=== PATIENT | male | born 1960 | race Caucasian/White ===

== ENCOUNTER 2020-01-29 01:14 | Inpatient (IN) | payer MEDICAID ==
[~2020-01-29] VITALS: Ht 175.3 cm; Wt 83.0 kg
[2020-01-29] MEDS ORDERED: LIDOcaine 2% 10ml TOPICAL JELLY (Urojet) TP ONE (01:50)
[2020-01-29 02:48] LABS: BASOPHILS # (AUTO) 0.1 X10'3 (0-0.2); BASOPHILS % (AUTO) 0.9 % (0-1); EOSINOPHILS % (AUTO) 0.3 % (0-6); HEMATOCRIT 26.1 % (42.0-52.0); HEMOGLOBIN 8.7 g/dl (14.0-17.9); LYMPHOCYTES # (AUTO) 1.4 X10'3 (1.1-4.8); LYMPHOCYTES % (AUTO) 11.9 % (21-51); MEAN CORPUSCULAR HEMOGLOBIN 30.4 PG (27.0-31.0); MEAN CORPUSCULAR HGB CONC 33.2 g/dL (33.0-36.5); MEAN CORPUSCULAR VOLUME 91.5 FL (78-98); MEAN PLATELET VOLUME 7.8 FL (7.4-10.4); MONOCYTES # (AUTO) 0.9 X10'3 (0-0.9); MONOCYTES % (AUTO) 8.2 % (2-12); NEUTROPHILS # (AUTO) 8.9 X10'3 (1.8-7.7); NEUTROPHILS % (AUTO) 78.7 % (42-75); PLATELET COUNT 442 X10'3 (140-440); RED BLOOD COUNT 2.86 X10'6 (4.70-6.10); RED CELL DISTRIBUTION WIDTH 15.2 % (11.5-14.5); WHITE BLOOD COUNT 11.4 X10'3 (4.5-11.0)
[2020-01-29 02:49] LABS: CLARITY,URINE SLIGHTLY CLOUDY (Clear); COLOR,URINE YELLOW (Yellow); GLUCOSE, URINE NEGATIVE (Neg); KETONES,URINE NEGATIVE (Neg); LEUKOCYTE ESTERASE ,URINE NEGATIVE (Neg); NITRITES, URINE NEGATIVE (Neg); OCCULT BLOOD,URINE LARGE (Neg); PH,URINE 5.5 (4.8-8.0); PROTEIN,URINE TRACE mg/dl (Neg); UROBILINOGEN,URINE 0.2 E.U/dL (0.2-1.0)
[2020-01-29] MEDS ORDERED: acetaminophen 325mg tablet PO ONE (02:50)
[2020-01-29 02:56] LABS: UA COLLECTION TYPE FOLEY CATH
[2020-01-29 02:58] LABS: BACTERIA,URINE 1+ /HPF (Neg); SQUAMOUS EPITHELIAL CELL,UR FEW /LPF (FEW)
[2020-01-29 03:04] LABS: ALANINE AMINOTRANSFERASE 12 U/L (12-78); ALBUMIN 3.6 G/DL (3.4-5.0); ALBUMIN/GLOBULIN RATIO 0.9 (1.1-1.5); ALKALINE PHOSPHATASE 77 IU/L (46-116); ANION GAP 23 (8-16); ASPARTATE AMINO TRANSFERASE 11 U/L (10-37); BILIRUBIN,TOTAL 0.3 MG/DL (0.1-1.0); BUN/CREATININE RATIO 4.4 (5.4-32.0); CALCIUM 8.8 MG/DL (8.5-10.1); CHLORIDE 99 MMOL/L (99-107); GLUCOSE 75 MG/DL (70-104); LIPASE 82 U/L (73-393); POTASSIUM 4.1 MMOL/L (3.5-5.1); SODIUM 137 MMOL/L (135-145); TOTAL CARBON DIOXIDE 15.1 MMOL/L (24-32); TOTAL PROTEIN 7.8 G/DL (6.4-8.2); eGFR 4 ML/MIN
[2020-01-29 03:16] LABS: BLOOD UREA NITROGEN 55 MG/DL (7-18)
[2020-01-29] MEDS ORDERED: CefTRIAXone/D5W-Rocephin 1gm 50 ML IV ONE (03:20)
[2020-01-29] MEDS ORDERED: normal saline 1000ML IV soln IVB ONE (03:20)
[2020-01-29] MEDS ORDERED: NO HOME MEDS (03:51)
[2020-01-29] MEDS ORDERED: magnesium hydroxide 30ml (MOM) UD suspension PO PRN (04:30)
[2020-01-29] MEDS ORDERED: amLODIPine 5mg tablet PO ONE (04:30)
[2020-01-29] MEDS ORDERED: mag hydrox/Alum hydrox/simeth 30ml oral suspension PO PRN (04:30)
[2020-01-29] MEDS ORDERED: acetaminophen 325mg tablet PO PRN (04:30)
[2020-01-29] MEDS ORDERED: ondansetron/PF 4mg/2ml inj IV PRN (04:30)
[2020-01-29] MEDS: normal saline 1000ml 1,000 ML IV SCH ×3 (04:52→16:58)
[2020-01-29 05:44] VITALS: BP 186/93
--- NOTE | 2020-01-29 05:46 | NUR ---
pt just admitted from ER. BP is 186/93. Norvasc was given in ER before pt came to the floor Addendum: 01/29/20 at 0548 by Susan Woodson RN Amended: Links added.
--- NOTE | 2020-01-29 05:48 | NUR ---
Patient in room [facility]. I have received report from Angie HILTON and had the opportunity to ask questions and assume patient care.
--- NOTE | 2020-01-29 06:40 | NUR ---
Patient in room [facility]. I have received report from Susan HILTON and had the opportunity to ask questions and assume patient care.
--- NOTE | 2020-01-29 06:45 | NUR ---
Problems reprioritized. Patient report given, questions answered & plan of care reviewed with Hayde HILTON.
[2020-01-29 07:00] VITALS: BP 172/81
[2020-01-29] MEDS: morphine 2 MG/ML inj. syringe IV PRN ×2 (07:16→23:15)
[2020-01-29] MEDS: CefTRIAXone/D5W-Rocephin 1gm 50 ML IV SCH ×2 (07:16→07:18)
[2020-01-29 09:59] LABS: BASOPHILS # (AUTO) 0.1 X10'3 (0-0.2); EOSINOPHILS # (AUTO) 0.3 X10'3 (0-0.9); EOSINOPHILS % (AUTO) 2.4 % (0-6); HEMATOCRIT 26.9 % (42.0-52.0); HEMOGLOBIN 8.9 g/dl (14.0-17.9); LYMPHOCYTES # (AUTO) 2.1 X10'3 (1.1-4.8); LYMPHOCYTES % (AUTO) 19.7 % (21-51); MEAN CORPUSCULAR HEMOGLOBIN 30.3 PG (27.0-31.0); MEAN CORPUSCULAR HGB CONC 33.2 g/dL (33.0-36.5); MEAN CORPUSCULAR VOLUME 91.2 FL (78-98); MEAN PLATELET VOLUME 8.6 FL (7.4-10.4); MONOCYTES % (AUTO) 9.8 % (2-12); NEUTROPHILS # (AUTO) 7.1 X10'3 (1.8-7.7); NEUTROPHILS % (AUTO) 67.1 % (42-75); PLATELET COUNT 434 X10'3 (140-440); RED BLOOD COUNT 2.95 X10'6 (4.70-6.10); RED CELL DISTRIBUTION WIDTH 15.2 % (11.5-14.5); WHITE BLOOD COUNT 10.6 X10'3 (4.5-11.0)
[2020-01-29 10:06] LABS: ALBUMIN 3.3 G/DL (3.4-5.0); ANION GAP 19 (8-16); BLOOD UREA NITROGEN 51 MG/DL (7-18); BUN/CREATININE RATIO 5.4 (5.4-32.0); CHLORIDE 106 MMOL/L (99-107); CREATININE 9.37 MG/DL (0.60-1.10); GLUCOSE 64 MG/DL (70-104); SODIUM 141 MMOL/L (135-145); TOTAL CARBON DIOXIDE 15.8 MMOL/L (24-32); eGFR 6 ML/MIN
[2020-01-29 11:00] VITALS: BP 144/77
--- NOTE | 2020-01-29 12:19 | NUR ---
PAGER ID: [phone] MESSAGE: Linda_Surg [phone] Re: [facility] patient would like to eat? Can we order a diet ?
--- NOTE | 2020-01-29 13:54 | NUR ---
Malnutrition consult: Pt unsure of wt loss however reports decreased appetite per malnutrition risk screen with RN. Pt with scaled wt hx of 84.1 kg taken August 2015, current scaled weight is 83 kg (114% IBW). Patient previously NPO, requesting to eat per RN notes. Diet has been advanced to clear liquids, pending first meal since advancement. Pt with no documented significant decrease in muscle strength or edema. Pt currently lacks a minimum of two criteria for malnutrition. Will continue to follow. Addendum: 01/29/20 at [address] Amended: Links added.
--- NOTE | 2020-01-29 18:39 | NUR ---
Problems reprioritized. Patient report given, questions answered & plan of care reviewed with Elías HILTON.
[2020-01-29 19:00] VITALS: BP 163/86
[2020-01-29] MEDS: lactobacillus rhamnosus 10,000 MMU CELLS/CAPSULE PO SCH (19:15)
[2020-01-30] VITALS (16 sets, daily range): BP systolic 120–177; BP diastolic 67–102
[2020-01-30] MEDS: normal saline 1000ml 1,000 ML IV SCH ×4 (01:50→22:15)
[2020-01-30 04:11] LABS: BASOPHILS # (AUTO) 0.1 X10'3 (0-0.2); BASOPHILS % (AUTO) 0.8 % (0-1); EOSINOPHILS # (AUTO) 0.2 X10'3 (0-0.9); EOSINOPHILS % (AUTO) 2.2 % (0-6); HEMATOCRIT 27.2 % (42.0-52.0); HEMOGLOBIN 9.1 g/dl (14.0-17.9); LYMPHOCYTES # (AUTO) 2.1 X10'3 (1.1-4.8); LYMPHOCYTES % (AUTO) 19.4 % (21-51); MEAN CORPUSCULAR HGB CONC 33.4 g/dL (33.0-36.5); MEAN CORPUSCULAR VOLUME 89.9 FL (78-98); MEAN PLATELET VOLUME 7.9 FL (7.4-10.4); MONOCYTES # (AUTO) 0.9 X10'3 (0-0.9); MONOCYTES % (AUTO) 8.6 % (2-12); NEUTROPHILS # (AUTO) 7.5 X10'3 (1.8-7.7); PLATELET COUNT 449 X10'3 (140-440); RED BLOOD COUNT 3.03 X10'6 (4.70-6.10); RED CELL DISTRIBUTION WIDTH 15.3 % (11.5-14.5); WHITE BLOOD COUNT 10.9 X10'3 (4.5-11.0)
[2020-01-30 04:26] LABS: ALANINE AMINOTRANSFERASE 10 U/L (12-78); ALBUMIN 3.2 G/DL (3.4-5.0); ALBUMIN/GLOBULIN RATIO 0.8 (1.1-1.5); ALKALINE PHOSPHATASE 62 IU/L (46-116); ANION GAP 11 (8-16); ASPARTATE AMINO TRANSFERASE 9 U/L (10-37); BILIRUBIN,TOTAL 0.2 MG/DL (0.1-1.0); BLOOD UREA NITROGEN 31 MG/DL (7-18); BUN/CREATININE RATIO 7.2 (5.4-32.0); CALCIUM 8.3 MG/DL (8.5-10.1); CHLORIDE 111 MMOL/L (99-107); CREATININE 4.33 MG/DL (0.60-1.10); GLUCOSE 89 MG/DL (70-104); POTASSIUM 3.7 MMOL/L (3.5-5.1); SODIUM 145 MMOL/L (135-145); TOTAL CARBON DIOXIDE 22.6 MMOL/L (24-32); TOTAL PROTEIN 7.2 G/DL (6.4-8.2); eGFR 14 ML/MIN
--- NOTE | 2020-01-30 07:20 | NUR ---
Received phone call from chief technician x ray that pt's bladder distended and appeared to be full of urine. Bladder scanned pt's bladder, bladder scan shows 74 mL in bladder-pt reports he repositioned and feels that his bladder is "now draining better." will continue to monitor.
[2020-01-30] MEDS: lactobacillus rhamnosus 10,000 MMU CELLS/CAPSULE PO SCH ×2 (07:33→20:59)
[2020-01-30] MEDS: CefTRIAXone/D5W-Rocephin 1gm 50 ML IV SCH (07:34)
[2020-01-30] MEDS ORDERED: ondansetron/PF 4mg/2ml inj IV PRN (10:10)
[2020-01-30] MEDS ORDERED: morphine 2 MG/ML inj. syringe IV PRN (10:10)
[2020-01-30] MEDS ORDERED: labetalol 20mg/4ml (5mg/ml) syringe IV PRN (10:10)
[2020-01-30] MEDS ORDERED: fentaNYL/PF 50MCG/1 ML 2ML syringe IV PRN ×2 (10:10)
[2020-01-30] MEDS ORDERED: ringers solution, lacted 1,000 ML IV SCH (10:10)
[2020-01-30] MEDS ORDERED: ringers solution, lacted 1,000 ML IV ONE (10:10)
[2020-01-30] MEDS ORDERED: hydrALAZINE 20mg/ml inj. IV PRN (10:10)
[2020-01-30] MEDS ORDERED: morphine 4 MG/ML inj SYRINge IV PRN (10:10)
--- NOTE | 2020-01-30 10:15 | NUR ---
Attempted x2 to start new PIV for patient for OR. failed attempts. OR tech arrived to pick patient up upon second failed attempt. notified LIDA kenney in recovery.
[2020-01-30] MEDS ORDERED: MIDAZolam 5mg/5ml vial ONE ×2 (11:10→11:18)
--- NOTE | 2020-01-30 12:10 | NUR ---
Received from OR via BED, accompanied by Anesthesiologist DR OLIVARES-- and report given by Anesthesiolgist. PATIENT A&OX4, DENIES PAIN, V/S WNL, NEUROVASCULAR CHECKS INTACT, 20G PIV LUE, SCD ON, F/C DRAINING RED URINE HEMATURIA DR GOMEZ AWARE. NO S/S OF ANY OTHER COMPLICATIONS AT VISABLE SURGICAL SITE.
--- NOTE | 2020-01-30 12:40 | NUR ---
PATIENT A&OX4, DENIES PAIN, V/S WNL, NEUROVASCULAR CHECKS INTACT, 20G PIV LUE, SCD ON, F/C DRAINING RED URINE HEMATURIA DR GOMEZ AWARE. NO S/S OF ANY OTHER COMPLICATIONS AT VISABLE SURGICAL SITE. 3WAY IRRIGATION F/C BUT NO ACTIVE IRRIGATION ORDERED FOR F/C YET AT THIS TIME. SENSATIONS AT T11. PATIENT TAKEN TO 345A WITH ALL BELONGINGS AND HOOKED UP TO MONITORS IN ROOM AND REPORT GIVEN TO RN WHO HAS TAKEN OVER PATIENT CARE.
--- NOTE | 2020-01-30 12:44 | NUR ---
RECEIVED REPORT FROM LIDA HUBBARD IN RECOVERY. PATIENT BACK FROM OR, POST OP VITAL SIGNS STARTED. PT REPORTS NO PAIN, STATES "DOESNT FEEL MUCH." FIRST SET VSS. WILL CONTINUE TO MONITOR.
--- NOTE | 2020-01-30 14:27 | NUR ---
Patient has field start for IV access, refusing new IV at this time, pt stating "no more poking please"
[2020-01-30] MEDS: morphine 2 MG/ML inj. syringe IV PRN (16:50)
--- NOTE | 2020-01-30 17:18 | NUR ---
hand irrigated pt's 3 way hernandez X3. got several smaller clots and 400 cc's urine out-bladder scan shows 0 mL in bladder. Morphine given for pt's discomfort.
--- NOTE | 2020-01-30 17:40 | NUR ---
Spoke to Dr. Cochran, let him know that after hand irrigating this most recent time, I was able to get 60 cc's out that I put in the catheter lumen to irrigate, but that it seems to stop flowing through the catheter tubing not long after irrigation. states that he will call back in an hour to check to see if anything has changed, and that he may put in different sized catheter.
[2020-01-30] MEDS ORDERED: opium/belladonna alkaloids No. 15A 30mg rectal suppository RC PRN (18:30)
--- NOTE | 2020-01-30 18:40 | NUR ---
Problems reprioritized. Patient report given, questions answered & plan of care reviewed with LIDA Mckinley.
[2020-01-30] MEDS: HYDROmorphone 1 mg/ml syringe IV PRN (20:56)
[2020-01-31] VITALS: BP 174/86
[2020-01-31] MEDS: normal saline 1000ml 1,000 ML IV SCH ×5 (04:30→23:00)
[2020-01-31 05:24] LABS: ALANINE AMINOTRANSFERASE 10 U/L (12-78); ALBUMIN 2.8 G/DL (3.4-5.0); ALBUMIN/GLOBULIN RATIO 0.8 (1.1-1.5); ALKALINE PHOSPHATASE 53 IU/L (46-116); ANION GAP 7 (8-16); ASPARTATE AMINO TRANSFERASE 10 U/L (10-37); BILIRUBIN,TOTAL 0.3 MG/DL (0.1-1.0); BLOOD UREA NITROGEN 16 MG/DL (7-18); BUN/CREATININE RATIO 7.8 (5.4-32.0); CALCIUM 7.3 MG/DL (8.5-10.1); CHLORIDE 109 MMOL/L (99-107); CREATININE 2.04 MG/DL (0.60-1.10); GLUCOSE 98 MG/DL (70-104); POTASSIUM 3.3 MMOL/L (3.5-5.1); SODIUM 140 MMOL/L (135-145); TOTAL CARBON DIOXIDE 24.4 MMOL/L (24-32); TOTAL PROTEIN 6.3 G/DL (6.4-8.2); eGFR 33 ML/MIN
[2020-01-31 05:26] LABS: BASOPHILS # (AUTO) 0.1 X10'3 (0-0.2); BASOPHILS % (AUTO) 0.8 % (0-1); EOSINOPHILS # (AUTO) 0.5 X10'3 (0-0.9); EOSINOPHILS % (AUTO) 3.5 % (0-6); HEMATOCRIT 23.8 % (42.0-52.0); HEMOGLOBIN 7.8 g/dl (14.0-17.9); LYMPHOCYTES # (AUTO) 2.4 X10'3 (1.1-4.8); LYMPHOCYTES % (AUTO) 17.6 % (21-51); MEAN CORPUSCULAR HEMOGLOBIN 29.6 PG (27.0-31.0); MEAN CORPUSCULAR HGB CONC 32.8 g/dL (33.0-36.5); MEAN CORPUSCULAR VOLUME 90.3 FL (78-98); MEAN PLATELET VOLUME 8.2 FL (7.4-10.4); MONOCYTES # (AUTO) 1.4 X10'3 (0-0.9); NEUTROPHILS # (AUTO) 9.4 X10'3 (1.8-7.7); NEUTROPHILS % (AUTO) 68.1 % (42-75); PLATELET COUNT 353 X10'3 (140-440); RED BLOOD COUNT 2.64 X10'6 (4.70-6.10); RED CELL DISTRIBUTION WIDTH 15.4 % (11.5-14.5); WHITE BLOOD COUNT 13.8 X10'3 (4.5-11.0)
[2020-01-31] MEDS ORDERED: famotidine/PF 10 mg/ml inj IV ONE (06:00)
--- NOTE | 2020-01-31 06:05 | NUR ---
Patient in room [facility]. I have received report from LIDA Mckinley and had the opportunity to ask questions and assume patient care.
[2020-01-31 07:00] VITALS: BP 153/72
[2020-01-31] MEDS ORDERED: potassium Cl 20 mEq SR tablet PO PRN (08:00)
[2020-01-31] MEDS ORDERED: potassium CL 10mEq/100ml bag 100 ML IV PRN (08:00)
[2020-01-31] MEDS ORDERED: magnesium 4gm in 100ml NS 100 ML IV PRN (08:00)
[2020-01-31] MEDS ORDERED: magnesium 2GM in 50ml NS 50 ML IV PRN (08:00)
[2020-01-31 08:59] LABS: % FREE PSA 24.3 % (.); PSA, FREE 0.17 ng/mL
[2020-01-31 09:03] LABS: MAGNESIUM 0.9 MG/DL (1.5-2.4)
[2020-01-31] MEDS: lactobacillus rhamnosus 10,000 MMU CELLS/CAPSULE PO SCH ×2 (10:39→19:16)
[2020-01-31] MEDS: potassium Cl 20 mEq SR tablet PO PRN ×3 (10:40→18:08)
[2020-01-31] MEDS ORDERED: magnesium hydroxide 30ml (MOM) UD suspension PO PRN (10:50)
[2020-01-31] MEDS ORDERED: bisacodyl 10mg suppository rectal RC PRN (10:50)
[2020-01-31] MEDS: K and/or MAG REPLACEMENT MC SCH ×2 (11:13→20:00)
[2020-01-31] MEDS: CefTRIAXone/D5W-Rocephin 1gm 50 ML IV SCH (11:20)
[2020-01-31] MEDS: pantoprazole 40mg Tablet.DR PO SCH (11:20)
[2020-01-31] MEDS: magnesium oxide 400mg tablet PO SCH ×2 (11:22→19:16)
[2020-01-31 12:00] VITALS: BP 171/93
[2020-01-31] MEDS: HYDROmorphone 1 mg/ml syringe IV PRN ×2 (12:14→19:16)
[2020-01-31] MEDS: amLODIPine 5mg tablet PO SCH (15:08)
[2020-01-31 18:00] VITALS: BP 181/72
--- NOTE | 2020-01-31 18:00 | NUR ---
Patient in room [facility]. I have received report from Awilda HILTON and had the opportunity to ask questions and assume patient care.
--- NOTE | 2020-01-31 18:20 | NUR ---
Problems reprioritized. Patient report given, questions answered & plan of care reviewed with LIDA Loving.
[2020-02-01 00:16] VITALS: BP 134/80
[2020-02-01] MEDS: HYDROmorphone 1 mg/ml syringe IV PRN ×4 (02:03→21:12)
[2020-02-01 05:30] LABS: BASOPHILS # (AUTO) 0.1 X10'3 (0-0.2); BASOPHILS % (AUTO) 0.7 % (0-1); EOSINOPHILS # (AUTO) 0.6 X10'3 (0-0.9); EOSINOPHILS % (AUTO) 5.5 % (0-6); HEMATOCRIT 24.3 % (42.0-52.0); HEMOGLOBIN 7.9 g/dl (14.0-17.9); LYMPHOCYTES # (AUTO) 1.8 X10'3 (1.1-4.8); MEAN CORPUSCULAR HEMOGLOBIN 29.4 PG (27.0-31.0); MEAN CORPUSCULAR HGB CONC 32.5 g/dL (33.0-36.5); MEAN CORPUSCULAR VOLUME 90.5 FL (78-98); MEAN PLATELET VOLUME 8.3 FL (7.4-10.4); MONOCYTES # (AUTO) 0.8 X10'3 (0-0.9); MONOCYTES % (AUTO) 6.7 % (2-12); NEUTROPHILS # (AUTO) 8.2 X10'3 (1.8-7.7); NEUTROPHILS % (AUTO) 71.1 % (42-75); PLATELET COUNT 328 X10'3 (140-440); RED BLOOD COUNT 2.69 X10'6 (4.70-6.10); RED CELL DISTRIBUTION WIDTH 15.3 % (11.5-14.5); WHITE BLOOD COUNT 11.6 X10'3 (4.5-11.0)
[2020-02-01 05:40] LABS: ALANINE AMINOTRANSFERASE 12 U/L (12-78); ALBUMIN 2.9 G/DL (3.4-5.0); ALBUMIN/GLOBULIN RATIO 0.8 (1.1-1.5); ALKALINE PHOSPHATASE 55 IU/L (46-116); ANION GAP 9 (8-16); ASPARTATE AMINO TRANSFERASE 11 U/L (10-37); BILIRUBIN,TOTAL 0.1 MG/DL (0.1-1.0); BLOOD UREA NITROGEN 11 MG/DL (7-18); BUN/CREATININE RATIO 7.3 (5.4-32.0); CALCIUM 6.7 MG/DL (8.5-10.1); CHLORIDE 108 MMOL/L (99-107); CREATININE 1.51 MG/DL (0.60-1.10); GLUCOSE 105 MG/DL (70-104); MAGNESIUM 1.5 MG/DL (1.5-2.4); POTASSIUM 3.4 MMOL/L (3.5-5.1); SODIUM 143 MMOL/L (135-145); TOTAL CARBON DIOXIDE 25.9 MMOL/L (24-32); TOTAL PROTEIN 6.7 G/DL (6.4-8.2); eGFR 47 ML/MIN
[2020-02-01] MEDS: normal saline 1000ml 1,000 ML IV SCH ×2 (05:49→17:14)
--- NOTE | 2020-02-01 06:20 | NUR ---
Problems reprioritized. Patient report given, questions answered & plan of care reviewed with Tyra HILTON.
--- NOTE | 2020-02-01 06:25 | NUR ---
Patient in room [facility]. I have received report from LIDA GONZALEZ and had the opportunity to ask questions and assume patient care.
[2020-02-01 07:00] VITALS: BP 126/84
[2020-02-01] MEDS: K and/or MAG REPLACEMENT MC SCH ×2 (08:00→19:27)
[2020-02-01] MEDS: magnesium oxide 400mg tablet PO SCH ×2 (09:51→19:23)
[2020-02-01] MEDS: lactobacillus rhamnosus 10,000 MMU CELLS/CAPSULE PO SCH ×2 (09:51→19:23)
[2020-02-01] MEDS: pantoprazole 40mg Tablet.DR PO SCH (09:52)
[2020-02-01] MEDS: amLODIPine 5mg tablet PO SCH (09:55)
[2020-02-01] MEDS: CefTRIAXone/D5W-Rocephin 1gm 50 ML IV SCH (10:07)
[2020-02-01 11:00] VITALS: BP 144/77
[2020-02-01] MEDS: potassium Cl 20 mEq SR tablet PO PRN ×2 (17:09→21:12)
--- NOTE | 2020-02-01 18:50 | NUR ---
Problems reprioritized. Patient report given, questions answered & plan of care reviewed with LIDA GONZALEZ.
[2020-02-01 20:00] VITALS: BP 144/81
--- NOTE | 2020-02-01 23:12 | NUR ---
Patient in room [facility]. I have received report from Tyra HILTON and had the opportunity to ask questions and assume patient care.
--- NOTE | 2020-02-01 23:16 | NUR ---
I received report on Isaac Stovall at 1800 from Tyra HILTON
[2020-02-01 23:59] VITALS: BP 142/79
[2020-02-02] MEDS: potassium Cl 20 mEq SR tablet PO PRN ×4 (01:32→19:18)
[2020-02-02] MEDS: normal saline 1000ml 1,000 ML IV SCH ×2 (03:06→14:20)
[2020-02-02] MEDS: HYDROmorphone 1 mg/ml syringe IV PRN ×4 (04:02→19:18)
[2020-02-02 05:29] LABS: BASOPHILS # (AUTO) 0.1 X10'3 (0-0.2); BASOPHILS % (AUTO) 0.8 % (0-1); EOSINOPHILS # (AUTO) 0.7 X10'3 (0-0.9); EOSINOPHILS % (AUTO) 5.7 % (0-6); HEMATOCRIT 23.5 % (42.0-52.0); HEMOGLOBIN 7.6 g/dl (14.0-17.9); LYMPHOCYTES # (AUTO) 2.4 X10'3 (1.1-4.8); LYMPHOCYTES % (AUTO) 18.4 % (21-51); MEAN CORPUSCULAR HGB CONC 32.3 g/dL (33.0-36.5); MEAN CORPUSCULAR VOLUME 89.8 FL (78-98); MEAN PLATELET VOLUME 8.4 FL (7.4-10.4); MONOCYTES # (AUTO) 0.8 X10'3 (0-0.9); MONOCYTES % (AUTO) 6.2 % (2-12); NEUTROPHILS % (AUTO) 68.9 % (42-75); PLATELET COUNT 289 X10'3 (140-440); RED BLOOD COUNT 2.62 X10'6 (4.70-6.10); RED CELL DISTRIBUTION WIDTH 15.1 % (11.5-14.5)
[2020-02-02 05:35] LABS: ALANINE AMINOTRANSFERASE 15 U/L (12-78); ALBUMIN 2.6 G/DL (3.4-5.0); ALBUMIN/GLOBULIN RATIO 0.7 (1.1-1.5); ALKALINE PHOSPHATASE 50 IU/L (46-116); ANION GAP 9 (8-16); ASPARTATE AMINO TRANSFERASE 24 U/L (10-37); BILIRUBIN,TOTAL 0.1 MG/DL (0.1-1.0); BLOOD UREA NITROGEN 8 MG/DL (7-18); BUN/CREATININE RATIO 5.4 (5.4-32.0); CALCIUM 6.9 MG/DL (8.5-10.1); CHLORIDE 107 MMOL/L (99-107); CREATININE 1.49 MG/DL (0.60-1.10); GLUCOSE 97 MG/DL (70-104); MAGNESIUM 1.1 MG/DL (1.5-2.4); POTASSIUM 3.4 MMOL/L (3.5-5.1); SODIUM 143 MMOL/L (135-145); TOTAL PROTEIN 6.3 G/DL (6.4-8.2); eGFR 48 ML/MIN
--- NOTE | 2020-02-02 06:32 | NUR ---
Problems reprioritized. Patient report given, questions answered & plan of care reviewed with Monica HILTON.
[2020-02-02] MEDS: pantoprazole 40mg Tablet.DR PO SCH (07:39)
[2020-02-02] MEDS: magnesium oxide 400mg tablet PO SCH ×2 (07:39→19:18)
[2020-02-02] MEDS: lactobacillus rhamnosus 10,000 MMU CELLS/CAPSULE PO SCH ×2 (07:40→19:18)
[2020-02-02] MEDS: amLODIPine 5mg tablet PO SCH (07:40)
[2020-02-02] MEDS: CefTRIAXone/D5W-Rocephin 1gm 50 ML IV SCH (07:43)
[2020-02-02 08:00] VITALS: BP 118/66
[2020-02-02] MEDS: K and/or MAG REPLACEMENT MC SCH ×2 (08:00→20:00)
[2020-02-02] MEDS: magnesium Cl slow-release 64mg tablet PO PRN ×2 (10:20→22:10)
[2020-02-02 11:00] VITALS: BP 131/76
--- NOTE | 2020-02-02 14:33 | NUR ---
Initial: Pt admit with urinary retention and HE. Pt now POD #3 s/p clot evacuation and trans urethral resection of bladder tumor with gross hematuria secondary to bladder carcinoma, now resected per MD notes. Pt previously started on a clear liquid diet and now on a regular diet documented with 75-100% PO intake meeting nutrient needs. Pt receiving PRN mag replacement d/t hypomagnesemia. LBM 02/01. No nutrition intervention warranted at this time. Will continue to follow. Recommendations: 1) Continue regular diet 2) Bowel care per rx 3) Scaled weights per rx Addendum: 02/02/20 at [address] Amended: Links added.
--- NOTE | 2020-02-02 18:00 | NUR ---
Patient in room [facility]. I have received report from Monica HILTON and had the opportunity to ask questions and assume patient care.
--- NOTE | 2020-02-02 18:26 | NUR ---
Problems reprioritized. Patient report given, questions answered & plan of care reviewed with LIDA Loving.
[2020-02-02 19:24] VITALS: BP 155/85
[2020-02-03] VITALS: BP 122/74
[2020-02-03] MEDS: normal saline 1000ml 1,000 ML IV SCH ×3 (00:22→21:55)
[2020-02-03] MEDS: HYDROmorphone 1 mg/ml syringe IV PRN ×6 (00:29→23:38)
[2020-02-03 05:20] LABS: BASOPHILS # (AUTO) 0.1 X10'3 (0-0.2); EOSINOPHILS # (AUTO) 0.7 X10'3 (0-0.9); HEMOGLOBIN 7.2 g/dl (14.0-17.9); MONOCYTES # (AUTO) 0.8 X10'3 (0-0.9); NEUTROPHILS # (AUTO) 7.2 X10'3 (1.8-7.7)
[2020-02-03 05:22] LABS: BASOPHILS % (AUTO) 0.9 % (0-1); EOSINOPHILS % (AUTO) 5.9 % (0-6); HEMATOCRIT 22.3 % (42.0-52.0); LYMPHOCYTES # (AUTO) 2.8 X10'3 (1.1-4.8); LYMPHOCYTES % (AUTO) 24.3 % (21-51); MEAN CORPUSCULAR HEMOGLOBIN 29.1 PG (27.0-31.0); MEAN CORPUSCULAR HGB CONC 32.3 g/dL (33.0-36.5); MEAN PLATELET VOLUME 8.4 FL (7.4-10.4); MONOCYTES % (AUTO) 6.7 % (2-12); NEUTROPHILS % (AUTO) 62.2 % (42-75); PLATELET COUNT 248 X10'3 (140-440); RED BLOOD COUNT 2.47 X10'6 (4.70-6.10); RED CELL DISTRIBUTION WIDTH 15.4 % (11.5-14.5); WHITE BLOOD COUNT 11.6 X10'3 (4.5-11.0)
[2020-02-03 05:27] LABS: ALANINE AMINOTRANSFERASE 15 U/L (12-78); ALBUMIN 2.6 G/DL (3.4-5.0); ALBUMIN/GLOBULIN RATIO 0.7 (1.1-1.5); ALKALINE PHOSPHATASE 52 IU/L (46-116); ANION GAP 5 (8-16); ASPARTATE AMINO TRANSFERASE 14 U/L (10-37); BILIRUBIN,TOTAL 0.1 MG/DL (0.1-1.0); BLOOD UREA NITROGEN 9 MG/DL (7-18); BUN/CREATININE RATIO 7.5 (5.4-32.0); CALCIUM 7.4 MG/DL (8.5-10.1); CHLORIDE 107 MMOL/L (99-107); GLUCOSE 98 MG/DL (70-104); MAGNESIUM 1.3 MG/DL (1.5-2.4); POTASSIUM 4.2 MMOL/L (3.5-5.1); SODIUM 140 MMOL/L (135-145); TOTAL CARBON DIOXIDE 28.3 MMOL/L (24-32); TOTAL PROTEIN 6.5 G/DL (6.4-8.2); eGFR 62 ML/MIN
--- NOTE | 2020-02-03 06:06 | NUR ---
Problems reprioritized. Patient report given, questions answered & plan of care reviewed with Jacque HILTON.
--- NOTE | 2020-02-03 06:16 | NUR ---
Patient in room [facility]. I have received report from LIDA Loving and had the opportunity to ask questions and assume patient care.
[2020-02-03] MEDS: magnesium oxide 400mg tablet PO SCH ×2 (07:42→19:18)
[2020-02-03] MEDS: pantoprazole 40mg Tablet.DR PO SCH (07:42)
[2020-02-03] MEDS: lactobacillus rhamnosus 10,000 MMU CELLS/CAPSULE PO SCH ×2 (07:42→19:18)
[2020-02-03] MEDS: magnesium Cl slow-release 64mg tablet PO PRN (07:43)
[2020-02-03] MEDS: amLODIPine 5mg tablet PO SCH (07:43)
[2020-02-03] MEDS: CefTRIAXone/D5W-Rocephin 1gm 50 ML IV SCH (07:47)
[2020-02-03 08:00] VITALS: BP 147/70
[2020-02-03] MEDS: K and/or MAG REPLACEMENT MC SCH ×2 (08:00→19:19)
[2020-02-03 12:00] VITALS: BP 136/79
--- NOTE | 2020-02-03 12:01 | NUR ---
Patient in room [facility]. I have received report from LIDA Camejo and had the opportunity to ask questions and assume patient care.
--- NOTE | 2020-02-03 18:34 | NUR ---
Problems reprioritized. Patient report given, questions answered & plan of care reviewed with Ansley RN.
[2020-02-03 19:30] VITALS: BP 152/75
--- NOTE | 2020-02-03 19:30 | NUR ---
has scant amt of light pink sed in hernandez cath tubing
[2020-02-03 23:30] VITALS: BP 154/79
[2020-02-04] MEDS: HYDROmorphone 1 mg/ml syringe IV PRN ×2 (04:21→09:05)
[2020-02-04 07:00] VITALS: BP 136/70
[2020-02-04 07:33] VITALS: BP 125/76
[2020-02-04] MEDS: lactobacillus rhamnosus 10,000 MMU CELLS/CAPSULE PO SCH (07:45)
[2020-02-04 07:47] VITALS: BP_SYST 125
[2020-02-04] MEDS: amLODIPine 5mg tablet PO SCH (07:47)
[2020-02-04] MEDS: magnesium oxide 400mg tablet PO SCH (07:47)
[2020-02-04] MEDS: pantoprazole 40mg Tablet.DR PO SCH (07:47)
[2020-02-04] MEDS: CefTRIAXone/D5W-Rocephin 1gm 50 ML IV SCH (07:51)
[2020-02-04] MEDS: normal saline 1000ml 1,000 ML IV SCH (07:51)
[2020-02-04] MEDS: K and/or MAG REPLACEMENT MC SCH (08:00)
--- NOTE | 2020-02-04 09:05 | NUR ---
Student Medication Administration: For this medication-pass time frame, all medication were reviewed, dispensed, administered and documented per hospital policy by Michelle SEGOVIA [facility].
[2020-02-04] MEDS ORDERED: PANT40TA54 PO (10:30)
[2020-02-04] MEDS ORDERED: LACT1CAP26 PO (10:30)
[2020-02-04] MEDS ORDERED: NOR5T PO (10:30)
[2020-02-04] MEDS ORDERED: FERR325T28 PO (10:31)
--- NOTE | 2020-02-04 12:54 | NUR ---
PATIENT STABLE AND APPROPRIATE FOR DISCHARGE, IV TAKEN OUT, EDUCATION GIVEN, SUPPLIES FOR CATHETER CARE GIVEN, MEDS E-SCRIPTED TO PREFERRED PHARMACY, SCRIPT FOR [facility] SENT WITH PATIENT, SCRUB PANTS SUPPLIED, PATIENT WALKED TO BUS STOP WHERE PATIENT WILL TAKE BUS HOME
--- NOTE | 2020-02-04 16:55 | NUR ---
Student documentation: I have reviewed all interventions, assessments performed and documented by Víctor PEGUERO. Student Medication Administration: For all medication-pass' in the time frame of 1746-1552, all medication were reviewed, dispensed, administered and documented per hospital policy by Víctor PEGUERO.
== END 2020-02-04 12:54 | disposition home or self-care (01) | DRG 468 ==
LOC: ER 01:15 → ED HOLD 04:26 → SUR 3N 05:10
PROVIDERS: ADMIT Internal Medicine; ATTEND Internal Medicine
PROC: 0TBB8ZX Excision of Bladder, Via Natural or Artificial Opening Endoscopic, Diagnostic (ICD-10-PCS; 2020-01-30)
PROC: 0TCB8ZZ Extirpation of Matter from Bladder, Via Natural or Artificial Opening Endoscopic (ICD-10-PCS; principal; 2020-01-30 11:04)
DX: R31.0 Gross hematuria (principal); N13.6 Pyonephrosis; H54.8 Legal blindness, as defined in USA; I10 Essential (primary) hypertension; N17.9 Acute kidney failure, unspecified; Z87.891 Personal history of nicotine dependence; M19.90 Unspecified osteoarthritis, unspecified site; C67.9 Malignant neoplasm of bladder, unspecified; E83.42 Hypomagnesemia; K59.00 Constipation, unspecified; D62 Acute posthemorrhagic anemia
CPT/HCPCS: 36415; 74176; 76775; 80048; 80053; 81001; 82948; 83690; 83735; 84153; 84154; 85025; 86885; 86900; 86901; 86920; 87081; 87088; 93005; 99285; A4346; G0378; J0696; J1170; J2250; J2270; J3475; J7030